=== PATIENT | female | born 1975 | race Caucasian/White ===

== ENCOUNTER → 2018-02-13 | Day surgery (SDC) | payer OTHER ==
[~2018-02-13] MED LIST: BALANCED SALT SOLN 15 ML OPH IRRIG; HYDROmorphONE 1 MG/5 ML IV SYRINGE IV; MIDAZOLAM 1 MG/ML 2 ML INJ; MITOMYCIN 5 MG INJ OP; ONDANSETRON 4 MG INJ IV; OXYCODONE/ACETAMINOPHEN (5/325) TAB PO; PROPOFOL 20 ML
[2018-02-13] MEDS: SOD CHLORIDE 0.9% 1,000 ML IV (08:35)
[2018-02-13] MEDS: MOXIFLOXACIN 0.5% 3 ML OPH LEFT EYE (08:35)
[2018-02-13] MEDS: LIDOCAINE 1%/EPI 30 ML INJ (09:25)
== END | disposition home or self-care (01) ==
LOC: SDS 06:25
DX: H11.002 Unspecified pterygium of left eye (principal)
CPT/HCPCS: 65426; 84703